=== PATIENT | male | born 1945 | race Caucasian/White ===

== ENCOUNTER 2022-12-17 07:08 | Emergency (ER) | payer MEDICARE, BC ==
[2022-12-17 07:55] LABS: ANION GAP 10.2 mmol/L (5-15); CHLORIDE,CL 101 mmol/L (98-107); ESTIMATED GFR 44 mL/min (>=60); SODIUM,NA 144 mmol/L (136-145)
[2022-12-17] MEDS ORDERED: Sodium Chloride 0.9% 1,000 ML IV ONE (08:14)
[2022-12-17 10:20] LABS: CORONAVIRUS COVID-19 NAA NEGATIVE (NEGATIVE)
== END 2022-12-17 18:40 | disposition short-term general hospital (02) ==
LOC: VM.ED 07:08
DX: R53.1 Weakness (principal); C34.90 Malignant neoplasm of unspecified part of unspecified bronchus or lung; C78.7 Secondary malignant neoplasm of liver and intrahepatic bile duct; I10 Essential (primary) hypertension; E11.9 Type 2 diabetes mellitus without complications; J44.9 Chronic obstructive pulmonary disease, unspecified; Z72.0 Tobacco use; Z20.822 Contact with and (suspected) exposure to COVID-19
CPT/HCPCS: 0240U; 36415; 71045; 80053; 81001; 83735; 84484; 85025; 86140; 93005; 94760; 96360; 99285; J7030; 93010